=== PATIENT | male | born 1965 | race Native Hawaiian/Other Pacific Islander ===

== ENCOUNTER 2018-11-27 17:14 | Emergency (ER) | payer OTHER ==
[~2018-11-27] VITALS: Ht 170.2 cm; Wt 68.0 kg
[2018-11-27] MEDS ORDERED: DULOXETINE HCL30 MG PO (17:22)
[2018-11-27] MEDS ORDERED: DRISDOL50000 UNIT PO (17:23)
[2018-11-27] MEDS ORDERED: TAMS0.4C PO (17:24)
[2018-11-27] MEDS ORDERED: LEVO-T150 MCG PO (17:24)
[2018-11-27] MEDS ORDERED: CYCL10TA35 PO (17:25)
[2018-11-27] MEDS ORDERED: DIVA250T2 PO (17:25)
[2018-11-27] MEDS ORDERED: DOCU100C10 PO (17:25)
[2018-11-27] MEDS ORDERED: SODI1TAB PO (17:26)
[2018-11-27] MEDS ORDERED: XANAX XR1 MG PO (17:27)
[2018-11-27] MEDS ORDERED: GABA300C2 PO (17:28)
[2018-11-27] MEDS ORDERED: OXYC5TAB24 PO (17:30)
[2018-11-27] MEDS ORDERED: MAGNSUS68 PO (17:31)
[2018-11-27] MEDS ORDERED: TYLENOL325 MG PO (17:31)
[2018-11-27 17:47] LABS: PLATELET COUNT 322 K/uL (142-355)
[2018-11-27 17:55] LABS: POTASSIUM 4.5 mmol/L (3.6-5.2)
[2018-11-27 19:13] VITALS: BP 142/69; TEMP 98.4
== END 2018-11-27 20:05 | disposition other institution (70) ==
LOC: ED 17:14
PROVIDERS: Emergency Medicine
DX: F28 Other psychotic disorder not due to a substance or known physiological condition (principal); Z04.6 Encounter for general psychiatric examination, requested by authority
CPT/HCPCS: 36415; 80053; 81000; 85027; 93005; 99285

== ENCOUNTER 2021-12-09 20:05 | Emergency (ER) | payer OTHER ==
[~2021-12-09] VITALS: Ht 170.2 cm; Wt 101.6 kg
[2021-12-09 20:05] VITALS: TEMP 98.5
[~2021-12-09 20:05] MED LIST: CYCL10TA35 PO; DIVALPROEX500 MG PO; DOCU100C10 PO; DRISDOL50000 UNIT PO; DULOXETINE HCL30 MG PO; GABA300C2 PO; LEVO-T150 MCG PO; MAGNSUS68 PO; OXYC5TAB24 PO; SODI1TAB PO; TAMS0.4C PO; TYLENOL325 MG PO; XANAX XR1 MG PO
[2021-12-09 21:16] LABS: PLATELET COUNT 295 K/uL (142-355)
[2021-12-09 21:26] LABS: POTASSIUM 4.2 mmol/L (3.6-5.2)
[2021-12-09 22:52] VITALS: BP 160/88
[2021-12-10] MEDS ORDERED: DIVALPROEX250 MG PO (08:56)
[2021-12-10] MEDS ORDERED: DULOXETINE HYDR60 MG PO (08:58)
[2021-12-10] MEDS ORDERED: FUROSEMIDE20 MG PO (08:59)
[2021-12-10] MEDS ORDERED: BUSPIRONE15 MG PO (09:04)
[2021-12-10] MEDS ORDERED: CYCLOBENZAPRINE5 MG PO (09:05)
[2021-12-10] MEDS ORDERED: CLON0.5T36 PO (09:09)
[2021-12-10] MEDS ORDERED: MIRALAX17 GM PO (09:11)
[2021-12-10] MEDS ORDERED: OXCARBAZEPIN600 MG PO (09:12)
[2021-12-10] MEDS ORDERED: QUETIAPINE100 MG PO (09:14)
[2021-12-10] MEDS ORDERED: QUETIAPINE50 MG PO (09:15)
[2021-12-10] MEDS ORDERED: HYDROCODONE BIT1 TA2 PO (09:19)
== END 2021-12-09 22:52 | disposition still patient (30) ==
LOC: ED 20:16
PROVIDERS: Hospitalist
DX: F25.8 Other schizoaffective disorders (principal); F03.91 Unspecified dementia, unspecified severity, with behavioral disturbance; Z11.52 Encounter for screening for COVID-19; Z04.6 Encounter for general psychiatric examination, requested by authority
CPT/HCPCS: 36415; 80053; 81000; 85027; 87635; 93005; 99283; U0003